=== PATIENT | male | born 1985 | race African-American/Black ===

== ENCOUNTER 2017-05-17 20:59 | Emergency (ER) | payer OTHER ==
--- NOTE | 2017-05-17 21:32 | EDM.PDOC ---
ED HPI GENERAL MEDICAL PROBLEM - General Chief Complaint: Upper Extremity Injury/Pain Stated Complaint: WRIST INJURY Time Seen by Provider: 05/17/17 21:17 - History of Present Illness INITIAL COMMENTS - FREE TEXT/NARRATIVE: HISTORY AND PHYSICAL: History of present illness: Patient 31-year-old black male presents with concern bilateral wrist pain he states he had an injury of his right wrist back in October he does lift weights and does quite heavyweight including a bench press that's approximately 400 pounds he denies any other recent trauma or concern. He states he's been doing large numbers of pushups recently and has had some discomfort in his wrists bilaterally. Review of systems: As per history of present illness and below otherwise all systems reviewed and negative. Past medical history: As per history of present illness and as reviewed below otherwise noncontributory. Surgical history: As per history of present illness and as reviewed below otherwise noncontributory. Social history: No reported history of drug or alcohol abuse. Family history: As per history of present illness and as reviewed below otherwise noncontributory. Physical exam: HEENT: Atraumatic, normocephalic, pupils reactive, negative for conjunctival pallor or scleral icterus, mucous membranes moist, throat clear, neck supple, nontender, trachea midline. Lungs: Clear to auscultation, breath sounds equal bilaterally, chest nontender. Heart: S1S2, regular, negative for clicks, rubs, or JVD. Abdomen: Soft, nondistended, nontender. Negative for masses or hepatosplenomegaly. Negative for costovertebral tenderness. Pelvis: Stable nontender. Genitourinary: Deferred. Rectal: Deferred. Extremities: Atraumatic, negative for cords or calf pain. Neurovascular unremarkable. Wrists bilaterally are without point tenderness CMS and neurovascular exams unremarkable Neuro: Awake, alert, oriented. Cranial nerves II through XII unremarkable. Cerebellum unremarkable. Motor and sensory unremarkable throughout. Exam nonfocal. Diagnostics: X-ray right/left wrist Therapeutics: None Impression: #1 bilateral wrist pain probable overuse syndrome Definitive disposition and diagnosis as appropriate pending reevaluation and review of above. Left Wrist Pain Score (Numeric/FACES): 10 - Related Data Allergies Allergy/AdvReac Type Severity Reaction Status Date / Time shrimp Allergy Swelling Verified 05/17/17 21:21 Home Meds: Home Meds Multivitamins [Tab-A-Shahid] 1 tab PO DAILY 05/17/17 [History] Review of Systems - Review of Systems Review Of Systems: ROS reveals no pertinent complaints other than HPI. ED EXAM, GENERAL - Physical Exam Exam: See Below (See dictation) Course - Vital Signs Last Recorded V/S: Last Vital Signs Temp 36.6 C 05/17/17 21:17 Pulse 96 05/17/17 21:17 Resp 18 05/17/17 21:17 BP 156/85 H 05/17/17 21:17 Pulse Ox 97 05/17/17 21:17 - Orders/Labs/Meds Orders: Active Orders 24 hr Category Date Time Status Wrist 2V Lt [CR] Stat Exams 05/17/17 21:28 Ordered Wrist 2V Rt [CR] Stat Exams 05/17/17 21:28 Ordered Departure - Departure Time of Disposition: 21:30 Disposition: Home, Self-Care 01 Condition: Good Clinical Impression: Bilateral wrist pain, Overuse syndrome - Discharge Information Referrals: PCP,None [Primary Care Provider] - Additional Instructions: The following information is given to patients seen in the emergency department who are being discharged to home. This information is to outline your options for follow-up care. We provide all patients seen in our emergency department with a follow-up referral. The need for follow-up, as well as the timing and circumstances, are variable depending upon the specifics of your emergency department visit. If you don't have a primary care physician on staff, we will provide you with a referral. We always advise you to contact your personal physician following an emergency department visit to inform them of the circumstance of the visit and for follow-up with them and/or the need for any referrals to a consulting specialist. The emergency department will also refer you to a specialist when appropriate. This referral assures that you have the opportunity for followup care with a specialist. All of these measure are taken in an effort to provide you with optimal care, which includes your followup. Under all circumstances we always encourage you to contact your private physician who remains a resource for coordinating your care. When calling for followup care, please make the office aware that this follow-up is from your recent emergency room visit. If for any reason you are refused follow-up, please contact the [facility] emergency department at and asked to speak to the emergency department charge nurse. [facility] [address] [place] [address] [address] [place] [address] Naprosyn as prescribed activity as discussed called schedule routine appointment above with hand surgery - My Orders Last 24 Hours: My Active Orders 05/17/17 21:28 Wrist 2V Lt [CR] Stat Wrist 2V Rt [CR] Stat - Assessment/Plan Last 24 Hours: My Active Orders 05/17/17 21:28 Wrist 2V Lt [CR] Stat Wrist 2V Rt [CR] Stat
[2017-05-17 23:01] VITALS: BP 130/79
--- NOTE | 2017-05-19 17:34 | CR ---
EXAM DATE: 05/17/17 PATIENT'S AGE: 31 Patient: HEATH RESENDIZ Facility: [place], [place] Site . Site : 1985 Study: XRay Extremity Left [id number] wrist-05/17/2017 9:47:27 PM Ordering Physician: Dannie Gooden Final Report: INDICATION: Bilateral Wrist Pain TECHNIQUE: Wrist radiograph 2 views left COMPARISON: None FINDINGS: Bones: Alignment is normal. No acute fractures or aggressive bone lesions identified. In particular, the scaphoid is unremarkable in appearance by radiography. Joint spaces: Unremarkable. The carpal rows are intact. Soft tissues: Unremarkable. No radiopaque foreign bodies are identified. IMPRESSION: 1. No acute osseous injuries are noted. Dictated by: Darshan Blue MD @ 05/17/2017 22:06:21 (Electronic Signature) Report Signed by Proxy. VIKI
--- NOTE | 2017-05-19 17:35 | CR ---
EXAM DATE: 05/17/17 PATIENT'S AGE: 31 Patient: HEATH RESENDIZ Facility: [place], [place] Site . Site : 1985 Study: XRay Extremity Right [id number] wrist-05/17/2017 9:48:34 PM Ordering Physician: Dannie Gooden Final Report: INDICATION: Bilateral Wrist Pain TECHNIQUE: Wrist radiograph 2 views right COMPARISON: None FINDINGS: Bones: Alignment is normal. No acute fractures or aggressive bone lesions identified. In particular, the scaphoid is unremarkable in appearance by radiography. Joint spaces: Unremarkable. The carpal rows are intact. Soft tissues: Unremarkable. No radiopaque foreign bodies are identified. IMPRESSION: 1. No acute osseous injuries are noted. Dictated by: Darshan Blue MD @ 05/17/2017 22:06:44 (Electronic Signature) Report Signed by Proxy. VIKI
== END 2017-05-17 22:57 | disposition home or self-care (01) ==
LOC: MW.ED 20:59
DX: M70.941 Unspecified soft tissue disorder related to use, overuse and pressure, right hand (principal); M70.942 Unspecified soft tissue disorder related to use, overuse and pressure, left hand; Z91.013 Allergy to seafood; X50.0XXA Overexertion from strenuous movement or load, initial encounter; Y93.B2 Activity, push-ups, pull-ups, sit-ups
CPT/HCPCS: 73100-26-LT; 73100-26-RT; 73100-LT; 73100-RT; 99282; 99283